=== PATIENT | male | born 1990 | race Caucasian/White ===

== ENCOUNTER 2023-07-29 23:55 | Emergency (ER) | payer SELFPAY ==
[~2023-07-29] VITALS: Ht 167.6 cm; Wt 72.0 kg
[2023-07-29 23:59] VITALS: BP 141/88; O2SAT 99
[2023-07-30] MEDS ORDERED: ONDANSETRON 4MG ODT PO ONE (00:15)
[2023-07-30] MEDS ORDERED: GUAIFENESIN 600MG ER TABLET PO ONE (00:15)
[2023-07-30 01:38] LABS: BASOPHILS % 0.6 % (0.0-2.0); EOSINOPHILS % 0.8 % (0.0-5.0); HEMATOCRIT. 42.6 % (42.0-52.0); HEMOGLOBIN. 14.1 g/dL (14.0-18.0); LYMPHOCYTES % 24.5 % (20.0-50.0); MEAN CORPUSCULAR HGB CONC 33.2 g/dL (31.0-37.0); MEAN CORPUSCULAR VOLUME 93.4 fL (80.0-94.0); MONOCYTES % 7.9 % (2.0-8.0); NEUTROPHILS % 66.2 % (40.0-76.0); PLATELET 259 x1000/uL (130-400); RED BLOOD CELL COUNT 4.56 mill/uL (4.7-6.1); RED CELL DISTRIBUTION WIDTH 13.9 % (11.6-14.6); WHITE BLOOD COUNT 6.6 x1000/uL (4.5-11.0)
[2023-07-30 01:57] LABS: ALANINE AMINOTRANSFERASE 20 IU/L (10-49); ALBUMIN 4.6 g/dL (3.2-4.8); ASPARTATE AMINOTRANSFERASE 28 IU/L (<34); BILIRUBIN TOTAL 0.5 mg/dL (0.1-1.0); CALCIUM 9.3 mg/dL (8.7-10.4); CARBON DIOXIDE 28 mEq/L (21-32); CHLORIDE 105 mEq/L (98-107); GLUCOSE 102 mg/dL (70-105); POTASSIUM 3.4 mEq/L (3.5-5.1); PROTEIN TOTAL 7.7 g/dL (6.0-8.3); SODIUM 141 mEq/L (136-145); UREA NITROGEN BLOOD 11 mg/dL (9-23)
[2023-07-30] MEDS ORDERED: HYDR10TA34 MT (02:27)
[2023-07-30] MEDS ORDERED: ONDA4TAB50 MT (02:27)
[2023-07-30] MEDS: ONDANSETRON 4MG ODT PO NR ×2 (03:56→03:57)
[2023-07-30 03:58] VITALS: PULSE 98; RESP 20; TEMP 98.3
== END 2023-07-30 04:05 | disposition home or self-care (01) ==
LOC: ER 07-30 00:08
DX: F41.0 Panic disorder [episodic paroxysmal anxiety] (principal); R11.2 Nausea with vomiting, unspecified
CPT/HCPCS: 99284; 71045; 87426; 80053; 83690; 85025; 36415; Q0162; C9803